=== PATIENT | female | born 1965 | race Caucasian/White ===

== ENCOUNTER → 2017-01-01 | Outpatient (CLI) | payer BC | LOC: MC.RAD 11:40 | DX: Z12.31 Encounter for screening mammogram for malignant neoplasm of breast (principal) ==

== ENCOUNTER → 2019-05-18 | Outpatient (CLI) | payer BC | LOC: MC.RAD 04-20 10:15 | DX: Z12.31 Encounter for screening mammogram for malignant neoplasm of breast (principal) ==